=== PATIENT | female | born 1985 | race African-American/Black ===

== ENCOUNTER 2017-06-09 13:20 | Emergency (ER) | payer OTHER, SELFPAY ==
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
== END 2017-06-09 14:13 | disposition home or self-care (01) ==
LOC: ERS 13:20
DX: S62.336A Displaced fracture of neck of fifth metacarpal bone, right hand, initial encounter for closed fracture (principal); F17.210 Nicotine dependence, cigarettes, uncomplicated; I10 Essential (primary) hypertension; Y04.2XXA Assault by strike against or bumped into by another person, initial encounter
CPT/HCPCS: 29125

== ENCOUNTER 2017-07-07 03:23 | Emergency (ER) | payer SELFPAY ==
[2017-07-07] MEDS ORDERED: Ibuprofen 800 MG TAB ONE (05:32)
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
== END 2017-07-07 06:24 | disposition home or self-care (01) ==
LOC: ERS 03:23
DX: M79.641 Pain in right hand (principal); I10 Essential (primary) hypertension; F41.9 Anxiety disorder, unspecified; F17.210 Nicotine dependence, cigarettes, uncomplicated; Z79.899 Other long term (current) drug therapy; Z71.6 Tobacco abuse counseling
CPT/HCPCS: 26605; 99406

== ENCOUNTER 2018-09-09 23:10 | Emergency (ER) | payer SELFPAY | END 2018-09-09 23:37 | disposition left against medical advice (07) | LOC: ERS 23:10 | DX: Z53.21 Procedure and treatment not carried out due to patient leaving prior to being seen by health care provider (principal) ==

== ENCOUNTER 2018-10-22 02:41 | Emergency (ER) | payer SELFPAY ==
[2018-10-22] MEDS ORDERED: Acetaminophen 500 MG TAB ONE (03:24)
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
--- NOTE | 2018-10-22 06:06 | RAD ---
RIGHT FOREARM THREE VIEWS: INDICATIONS: Fall with right wrist pain. FINDINGS/IMPRESSION: No acute fracture or subluxation is evident. Soft tissue swelling of the dorsal right wrist. POS: [facility]
== END 2018-10-22 04:41 | disposition home or self-care (01) ==
LOC: ERS 02:41
DX: S50.11XA Contusion of right forearm, initial encounter (principal); I10 Essential (primary) hypertension; F41.9 Anxiety disorder, unspecified; F17.210 Nicotine dependence, cigarettes, uncomplicated; Z79.899 Other long term (current) drug therapy; W10.9XXA Fall (on) (from) unspecified stairs and steps, initial encounter

== ENCOUNTER 2020-08-25 15:49 | Emergency (ER) | payer SELFPAY ==
[2020-08-25 17:19] LABS: #Eosinphils 0.2 thou/uL (0.0-0.7); #Lymphocytes 2.8 thou/uL (1.20-3.40); #Monocytes 0.5 thou/uL (0.11-0.59); #Neutrophils 3.9 thou/uL (1.40-6.50); %Basophils 0.6 % (0.0-1.0); %Lymphocytes 37.4 % (21.0-51.0); %Monocytes 6.8 % (0.0-10.0); %Neutrophils 52.1 % (42.0-75.0); Hemoglobin 12.6 g/dL (12.0-16.0); Mean Corpuscular HGB CONC 33.7 g/dL (32.0-36.0); Mean Corpuscular Hemoglobin 31.3 pg (27.0-31.0); Mean Corpuscular Volume 92.9 fL (78.0-98.0); Mean Platelet Volume 8.5 fL (7.4-10.4); Platelet Count 257 thou/uL (130-400); RBC Distribution Width 11.4 % (11.5-14.5); Red Blood Cell (RBC) Count 4.03 mill/uL (4.20-5.40); White Blood Cell (WBC) Count 7.4 thou/uL (4.8-10.8)
[2020-08-25] MEDS ORDERED: Metoclopramide HCl 10 MG/2 ML VIAL ONE (17:28)
[2020-08-25 17:33] LABS: BHCG - Serum Negative (NEGATIVE); Pregs Control Background? CLEAR/WHITE (CLR/WHITE); Pregs Control Bar Appear? YES (CONTROL BAR)
[2020-08-25 17:53] LABS: ALT (SGPT) 18 U/L (8-55); AST (SGOT) 16 U/L (5-34); Albumin 3.8 g/dL (3.5-5.0); Alkaline Phosphatase 57 U/L (40-110); Anion Gap 16 mmol/L (10-20); BUN (Urea Nitrogen) 12 mg/dL (7.0-18.7); Bilirubin, Total 0.2 mg/dL (0.2-1.2); Calc. Creatinine Clearance 0 mL/min (70-130); Calcium 8.8 mg/dL (7.8-10.44); Carbon Dioxide 20 mmol/L (22-29); Chloride 106 mmol/L (98-107); Globulin 2.9 g/dL (2.4-3.5); Glucose 102 mg/dL (70-105); Protein, Total 6.7 g/dL (6.0-8.3); Sodium 138 mmol/L (136-145)
[2020-08-25] MEDS ORDERED: Dexamethasone 10 MG/ML VIAL ONE (18:26)
[2020-08-25] MEDS ORDERED: Ketorolac Tromethamine 30 MG/ML VIAL ONE (18:26)
== END 2020-08-25 18:45 | disposition home or self-care (01) ==
LOC: ERS 15:49
DX: G43.909 Migraine, unspecified, not intractable, without status migrainosus (principal); I10 Essential (primary) hypertension; F17.210 Nicotine dependence, cigarettes, uncomplicated
CPT/HCPCS: 36415; 80053; 84703; 85025; 96365; 96375; J1100; J1885; J2765

== ENCOUNTER 2020-11-04 09:48 | Emergency (ER) | payer SELFPAY ==
[2020-11-04 17:01] LABS: SARS-CoV-2 PCR by NAA Not Detected (NotDetected)
== END 2020-11-04 11:24 | disposition home or self-care (01) ==
LOC: ERS 09:48
DX: R05 Cough (principal); Z20.822 Contact with and (suspected) exposure to COVID-19
CPT/HCPCS: 99283; U0003; U0005

== ENCOUNTER 2021-08-01 02:52 | Emergency (ER) | payer SELFPAY | END 2021-08-01 03:39 | disposition home or self-care (01) | LOC: ERS 02:52 | DX: S63.614A Unspecified sprain of right ring finger, initial encounter (principal); X50.9XXA Other and unspecified overexertion or strenuous movements or postures, initial encounter; Z87.891 Personal history of nicotine dependence | CPT/HCPCS: 29130 ==

== ENCOUNTER 2022-10-24 09:10 | Outpatient (CLI) | payer BC | END 2022-10-24 09:11 | disposition home or self-care (01) | LOC: RAD 09:10 | PROVIDERS: ATTEND Nurse Practitioner Women's Health | DX: M54.2 Cervicalgia (principal); M50.31 Other cervical disc degeneration, high cervical region | CPT/HCPCS: 72040 ==

== ENCOUNTER 2023-08-07 13:04 | Emergency (ER) | payer SELFPAY, OTHER ==
[2023-08-07] MEDS ORDERED: Boostrix 0.5 ML (Tdap) VIAL (>/=7 yrs of age) ONE (14:34)
[2023-08-07] MEDS ORDERED: Lidocaine 1% MPF 2 ML VIAL ONE (14:54)
[2023-08-07] MEDS ORDERED: cefTRIAXone (ROCEPHIN) 1 GM VIAL ONE (14:55)
[2023-08-07] MEDS ORDERED: cefTRIAXone (ROCEPHIN) 500 MG VIAL ONE (14:57)
== END 2023-08-07 15:27 | disposition home or self-care (01) ==
LOC: ERS 13:04
DX: S61.451A Open bite of right hand, initial encounter (principal); W54.0XXA Bitten by dog, initial encounter
CPT/HCPCS: 90471; 90715; 96372; J0696

== ENCOUNTER 2023-12-28 18:00 | Emergency (ER) | payer OTHER, SELFPAY ==
[2023-12-28] MEDS ORDERED: Metoclopramide HCl 10 MG (2 mL) VIAL ONE (18:54)
[2023-12-28] MEDS ORDERED: Ketorolac Tromethamine 30 MG (1 mL) VIAL ONE (18:54)
[2023-12-28] MEDS ORDERED: diphenhydrAMINE 50 MG/ML VIAL ONE (18:54)
[2023-12-28] MEDS ORDERED: methylPREDNISolone Sod Succ/PF 125 MG/2 ML VIAL ONE (18:55)
== END 2023-12-28 19:29 | disposition home or self-care (01) ==
LOC: ERS 18:00
DX: R51.9 Headache, unspecified (principal); I10 Essential (primary) hypertension
CPT/HCPCS: 96374; 96375; J1200; J1885; J2765; J2919

== ENCOUNTER 2024-10-13 12:30 | Emergency (ER) | payer BC, MEDICAID ==
[2024-10-13 14:56] LABS: Pregnancy Test - Urine (BHCG) Negative (Negative); Pregu Control Background? CLEAR/WHITE (CLR/WHITE); Pregu Control Bar Appear? YES (CONTROL BAR)
[2024-10-13 14:59] LABS: Bacteria/HPF 2+ HPF (None Seen); CAUTI Indications for Culture Dysuria,urgency,freq; Glucose, Urine (Dipstick) Normal (Negative); Leukocyte Negative Leu/uL (Negative); Protein, Urine (Dipstick) Negative (Neg-Trace); RBC/HPF 0-3 HPF (0-3); Specific Gravity, Urine 1.014 (1.002-1.036)
[2024-10-13 15:00] LABS: Urine Culture Reflex No No
[2024-10-13 17:00] LABS: #Basophils 0.03 10x3/uL (0.0-0.2); #Eosinophils 0.24 10x3/uL (0.0-0.7); #Monocytes 0.31 10x3/uL (0.11-0.59); #Neutrophils 2.33 10x3/uL (1.40-6.50); %Basophils 0.7 % (0.0-1.0); %Eosinophils 5.7 % (0.0-10.0); %Lymphocytes 31.1 % (21.0-51.0); %Monocytes 7.3 % (0.0-10.0); %Neutrophils 55.0 % (42.0-75.0); Hematocrit 45.5 % (36.0-47.0); Hemoglobin 14.5 g/dL (12.0-16.0); Mean Corpuscular Hemoglobin 29.1 pg (27.0-31.0); Mean Corpuscular Volume 91.4 fL (78.0-98.0); Platelet Count 280 10x3/uL (130-400); Red Blood Cell (RBC) Count 4.98 mill/uL (4.20-5.40); White Blood Cell (WBC) Count 4.24 10x3/uL (4.8-10.8)
[2024-10-13 17:21] LABS: ALT (SGPT) 16 U/L (Less than 34); AST (SGOT) 23 U/L (11-34); Albumin 4.0 g/dL (3.1-4.5); Alkaline Phosphatase 55 U/L (40-110); Anion Gap 15 mmol/L (10-20); BUN (Urea Nitrogen) 9 mg/dL (7.0-18.7); Bilirubin, Total 0.4 mg/dL (0.3-1.2); Calc. Creatinine Clearance 0 mL/min (70-130); Calcium 8.7 mg/dL (7.8-10.44); Carbon Dioxide 22 mmol/L (22-29); Chloride 104 mmol/L (98-107); Globulin 3.3 g/dL (2.4-3.5); Glucose 82 mg/dL (70-105); Potassium 3.7 mmol/L (3.5-5.1); Sodium 137 mmol/L (136-145)
[2024-10-13] MEDS ORDERED: metroNIDAZOLE 500 MG TAB ONE (18:18)
[2024-10-14 06:04] LABS: Chlamydia by PCR, Vaginal Swab Not Detected (NotDetected); GC by PCR, Vaginal Swab Not Detected (NotDetected)
== END 2024-10-13 18:27 | disposition home or self-care (01) ==
LOC: ERS 12:30
DX: N76.0 Acute vaginitis (principal); I10 Essential (primary) hypertension
CPT/HCPCS: 36415; 71045; 80053; 81001; 81025; 85025; 87480; 87491; 87510; 87591; 87660; 93005; Q0162